=== PATIENT | male | born 1955 | race Caucasian/White ===

== ENCOUNTER → 2019-05-04 09:43 | Outpatient (CLI) | payer BC, SELFPAY ==
--- NOTE | 2019-05-04 09:50 | XR_ITS ---
PROCEDURE: XR LUMBAR SPINE MIN 4V CLINICAL INDICATION: LT SIDE SCIATICA PAIN COMPARISON: No exams were available for comparison FINDINGS: Severe degenerative disc disease is present at L2-L3 with loss of disc space, osteophyte formation, and osteosclerosis. There is straightening of lordosis. No acute fracture or dislocation. Mild degenerative disc disease L4-L5. Mild facet hypertrophic changes L4-5 and L5-S1. There is a 3 mm calcific density to the left of the L3 transverse process slightly more lateral than what 1 would expect for ureteral stone possibly due to a kidney stone in the low-lying kidney. CT abdomen may further evaluate if clinically desired. Mild degenerative changes of the hips. IMPRESSION: 1. Spondylosis of the lumbar spine with severe degenerative disc disease L2-L3 2. Possible left renal stone Dictated by: Noam Cash MD 05/04/2019 10:45 Electronically signed by Noam Cash MD in [place] 05/04/2019 10:45
== END ==
PROVIDERS: PCP Internal Medicine Adolescent Medicine; Visit Provider Internal Medicine Adolescent Medicine
DX: M54.32 Sciatica, left side (principal)
CPT/HCPCS: 72110

== ENCOUNTER 2019-05-18 17:00 | Outpatient (RCR) | payer BC, SELFPAY ==
--- NOTE | 2019-05-10 18:07 | HMH.PTOPEV ---
PT Outpatient Evaluation Rehab PT Outpatient Evaluation Start: 05/10/19 16:55 Freq: Status: Active Protocol: Document 05/10/19 17:31 RUBY (Rec: 05/10/19 18:07 RUBY [id number]) Electronically Signed By Sampson Addison, PT 05/10/19 17:31 Outpatient Therapy Subjective History Subjective History Patient is a 63 year old male presenting to outpatient PT with reports of sub-acute LLE radicular symptoms starting approximately 3 months ago of insidious onset. Pt reports that he was diagnosed with singles without presence of rash. Most recent diagnostics indicate L 2/3 severe DDD. Pt reports symptoms present from L lateral hip to dorsum of L foot. Comorbidities include HTN, high cholesterol and diabetes. Chief Complaint Pain,Paresthesia Symptom Type Ache,Sharp,Burning Symptoms Relieved By Rest/Positioning,Prescription Meds Symptoms Aggravated By Bending/Stooping,Walking Prior Functional Limitations None Current Functional Limitations Reaching,Housework,Sleeping, Standing,Squatting,Recreation Activity,Walking,Bending/ Stooping Symptom Description Constant but Variable Level of pain today (0-10) 4 Pain scale - at its best (0-10) 2 Pain scale - at its worst (0-10) 8 Lumbopelvic Eval Posture Thoracic Spine Posture Standing Position Increased Kyphosis Lumbar Spine Posture Standing Position Decreased Lordosis Assistive device Assistive Devices None / NA Gait Observation General Gait Pattern Observation Antalgic Gait,Decrease Weight Bear (L) Palapation tenderness left buttock tenderness Yes: 4/4 Accessory Movement L5 left S1 left Range of Motion Lumbar Spine Active Flexion Range of 47 Motion (degrees) Lumbar Spine Active Extension Range of 25 Motion (degrees) Left Lumbar Spine Lateral Flexion Active 28 Range of Motion (degrees) Right Lumbar Spine Lateral Flexion 25 Active Range of Motion (degrees) Lumbar Spine ROM Limitations Soft Tissue Tightness,Bony Restriction Manual Muscle Test Left Knee Extension Strength Grade 4- Good- Hip Flexion Strength Grade 4- Good- DTR Rt Patellar
== END 2019-05-18 17:05 | disposition home or self-care (01) ==
LOC: PT 17:00
PROVIDERS: PCP Internal Medicine Adolescent Medicine; Visit Provider Internal Medicine Adolescent Medicine
DX: M54.31 Sciatica, right side (principal)
CPT/HCPCS: 97010; 97012; 97014; 97110; 97163; G0283

== ENCOUNTER → 2020-03-16 09:39 | Outpatient (CLI) | payer BC, SELFPAY ==
[2020-03-17 08:50] LABS: Covid-19 Nasal PCR Sendout UK Not Detected
== END ==
PROVIDERS: PCP Nurse Practitioner Family; Visit Provider Nurse Practitioner Family
DX: R06.02 Shortness of breath (principal)
CPT/HCPCS: U0003

== ENCOUNTER → 2020-04-26 13:15 | Outpatient (CLI) | payer BC, SELFPAY ==
--- NOTE | 2020-04-26 13:21 | CT_ITS ---
PROCEDURE: CT LUNG SCREENING CLINICAL INDICATION: HX OF NICOTINE Forty-five pack-year smoking history, asymptomatic for lung cancer COMPARISON: No exams were available for comparison TECHNIQUE: The exam was performed on a GE Light Speed [address] scanner using 2.90 mGy CTDI. A low dose helical CT CHEST was performed on a multi-detector scanner. All CT scans at the facility use one or more dose reduction, viz: automated exposure control, ma/kV adjustment per patient size (including targeted exams where dose is matched to indication, i.e. head), or iterative reconstruction technique. The LDCT was performed in a facility that meets the criteria for the screening program. Data regarding this exam was submitted to ACR which is an approved registry. The order for this exam indicates that it came as a result of a lung cancer screening counseling shard decision-making visit that included all the elements required of such a visit including smoking cessation. The radiologist interpreting this exam meets the CMS criteria for the LDCT lung cancer screening program. The exam is reported using the Lung-RADS classification scale and reported to the ACR registry. NOTE: This study was performed for the specific purposes of lung cancer screening and is not an alternative to diagnostic chest CT. RADIATION DOSE: CTDI vol(CT dose Index-volume) = 2.90mG DLP (Dose Length Product) = 114.64 mGcm FINDINGS: COPD changes. Mild bronchial thickening. No central obstructing lesions. Minimal scarring in the left lung base. Calcified granuloma is present in the left lower lobe. No suspicious nodules infiltrates or effusions. Left hemidiaphragm is elevated. OTHER FINDINGS: Coronary artery calcifications. A subcutaneous cystic lesion is present in the upper thoracic area posteriorly and centrally measuring 3.7 by 3.6 cm consistent with a sebaceous cyst. There is an oval isodense region in the anterior mediastinum measuring 5.5 x 2.9 x 2 cm. IMPRESSION: Lung-RADS Category 1 Negative There is a cystic anterior mediastinal mass which measures 5.5 x 2.9 cm. 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 Follow-up is suggested to confirm stability. Follow-up: Recommend [address] chest without and with contrast for further evaluation of the anterior mediastinal mass. Dictated by: Noam Cash MD 05/01/2020 10:20 Noam Cash MD in [place] 05/01/2020 10:20
== END ==
PROVIDERS: PCP Nurse Practitioner Family; Visit Provider Internal Medicine Adolescent Medicine
DX: Z87.891 Personal history of nicotine dependence (principal); Z12.2 Encounter for screening for malignant neoplasm of respiratory organs

== ENCOUNTER → 2020-05-17 15:11 | Outpatient (CLI) | payer BC, SELFPAY | PROVIDERS: PCP Internal Medicine Adolescent Medicine; Visit Provider Internal Medicine Adolescent Medicine | DX: G47.33 Obstructive sleep apnea (adult) (pediatric) (principal); R40.0 Somnolence; R06.83 Snoring; I10 Essential (primary) hypertension | CPT/HCPCS: G0399 ==

== ENCOUNTER → 2020-07-15 13:38 | Outpatient (CLI) | payer BC, SELFPAY | PROVIDERS: PCP Internal Medicine Adolescent Medicine; Visit Provider Nurse Practitioner Family | DX: Z11.52 Encounter for screening for COVID-19 (principal); J02.9 Acute pharyngitis, unspecified; R05 Cough | CPT/HCPCS: U0003 ==

== ENCOUNTER → 2020-10-08 17:10 | Outpatient (CLI) | payer BC, SELFPAY | PROVIDERS: Visit Provider Otolaryngology | DX: Z01.818 Encounter for other preprocedural examination (principal) ==

== ENCOUNTER → 2020-10-09 16:46 | Outpatient (CLI) | payer BC, SELFPAY ==
[2020-10-09 19:13] LABS: Coronavirus 19 IgG Antibody Negative (Negative); Coronavirus 19 IgM Antibody Negative (Negative)
== END ==
PROVIDERS: Visit Provider Otolaryngology
DX: Z01.818 Encounter for other preprocedural examination (principal); Z20.822 Contact with and (suspected) exposure to COVID-19; L98.9 Disorder of the skin and subcutaneous tissue, unspecified; L57.0 Actinic keratosis
CPT/HCPCS: 36415; 86328

== ENCOUNTER 2020-10-10 06:41 | Day surgery (SDC) | payer BC, SELFPAY ==
[2020-10-10 07:22] VITALS: BP 177/81; PULSE 53; RESP 18; TEMP 36.3; O2SAT 96; BMI 30.1
[2020-10-10 07:35] LABS: POC Glucose,Bedside 123 (70-110)
--- NOTE | 2020-10-10 07:53 | HMH.ANESCL ---
[facility] Anesthesia Checklist - Structural Data Admitted From: Home Planned Operative Procedure/s: excision neoplasm r hand, r face Consent for Planned Operative Procedure(s) Verified: Yes - Additional verifications Anesthesia Reactions: No Hx Blood Transfusions: No Blood Transfusion Reaction: No - Airway Assessment C-Spine Mobility Assessed: Yes TMJ Mobility Assessed: Yes Dentition: Edentulous - Neurological Assessment Level of Consciousness: Awake, Alert, Appropriate - Anesthesia Plan Anesthesia Risk discussed: Yes Anesthesia Plan: Verified ASA Class: II Anesthesia Type: MAC [facility] History I have reviewed the patient's past medical history: Yes Medical History: Reports:: Diabetes Mellitus Type 2 Denies:: Cancer, Diabetes Mellitus Type 1, Internal Pacemaker, MRSA, Seizures *Have you ever received a pneumonia vaccine?: No *Have you received a flu vaccine this season?: No Other Medical History: Denies: Blood Transfusion Reaction Anesthesia experience/problems:: none Other Surgeries: No: Pacemaker Amputation: No Fractures: No - *Social History Last grade of school completed: 11th or 12th Smoking Status: Current every day smoker Tobacco Type: cigarettes # Packs/Day (cigarettes): 1 Alcohol Intake: never Substance Use Type: denies use *Occupational Status:: employed Housing: house Household Members: spouse, family *Travel in the last 8 weeks: None Family Hx:: No significant family history
--- NOTE | 2020-10-10 09:17 | P.OP_ITS ---
Date of procedure: 10/10/20 Pre-op Diagnosis:: 1. lesion right cheek 3.8cm 2. lesion right hand 2.8cm Post-op Diagnosis:: Same Procedure performed:: 1. Excision of right cheek lesion 3.8 cm with tissue rearrangement geometric plastic repair 2. Excision of lesion right hand 2.8 cm with tissue rearrangement geometric plastic repair Surgeon:: Devon Mullins MD [employer] CLAIM INVESTIGATOR:: Other Anesthesia: MAC Estimated blood loss (mL): 10 Operative findings:: Same Operative note:: With the patient under MAC sedation the right cheek was prepped and draped. The perilesional area was infiltrated with 3.8 cc of 2% lidocaine with epi. The lesion was marked out a marker on the right cheek measured 3.8 cm, the chase out was incised and the lesion was excised and submitted. Bleeding was stopped with bipolar cautery, blood loss for all the procedure was less than 10 cc. Anterior and posterior incisions were made and a tissue rearrangement geometric plastic repair was done with interrupted 2-0 nylon sutures after Dermabond was placed in the defect. A dressing was applied. The patient was then repositioned and the lesion on the right hand measured 3.8 cm, the right hand was prepped and draped and the perilesional area was infiltrated with a total of 3.5 cc of 2% lidocaine with epinephrine. The lesion was marked out and the chase out was incised and the lesion was excised and submitted. Medial and lateral incisions were made and a tissue rearrangement Z-plasty repair was done with interrupted 3-0 nylon sutures. A Dermabond dressing was applied. The patient was sent to recovery in good general condition. Condition: stable Disposition: PACU Complications:: none
--- NOTE | 2020-10-10 09:22 | P.PN_ITS ---
[facility] Anesthesia Record Part I Intake, IV Amount: 300 Estimated blood loss (mL): 5 Urine output (mL): 0 Blood Pressure: 100/49 SaO2: 90 Pulse Rate: 49 Respiratory Rate: 14 Temperature: 97.1 F Patient is:: Awake Stable to PACU at:: 09:20
[2020-10-10 09:23] VITALS: BP 100/49; PULSE 47; RESP 18; TEMP 36.2; O2SAT 92
[2020-10-10 09:24] VITALS: BP 100/49; PULSE 49; RESP 14; TEMP 36.2; O2SAT 90
[2020-10-10 09:33] VITALS: BP 109/54; PULSE 48; RESP 18; O2SAT 90
[2020-10-10 09:43] VITALS: BP 116/68; PULSE 47; RESP 18; O2SAT 92
[2020-10-10 09:53] VITALS: BP 123/68; PULSE 50; RESP 18; O2SAT 91
== END 2020-10-10 10:00 | disposition home or self-care (01) ==
PROVIDERS: PCP Internal Medicine Adolescent Medicine; Visit Provider Otolaryngology
PROC: (CPT 14040; principal; 2020-10-10 08:15)
DX: L57.0 Actinic keratosis (principal); B07.9 Viral wart, unspecified; E11.9 Type 2 diabetes mellitus without complications; Z72.0 Tobacco use; Z79.82 Long term (current) use of aspirin; Z88.8 Allergy status to other drugs, medicaments and biological substances
CPT/HCPCS: 14040 ×2; 82962; 96374

== ENCOUNTER → 2021-01-23 14:01 | Outpatient (CLI) | payer BC, SELFPAY ==
[2021-01-23 07:26] LABS: Basophils # 0.1 K/mm3 (0-0.2); Basophils % 1.2 % (0.1-2.0); Eosinophils # 0.3 K/mm3 (0.0-0.4); Hematocrit 55.4 % (42.0-52.0); Hemoglobin 17.9 g/dL (14.1-18.0); Lymphocytes # 2.2 K/mm3 (0.7-4.5); Lymphocytes % 25.1 % (10-50); Mean Corpuscular HGB Conc 32.3 g/dL (31.8-35.4); Mean Corpuscular Hemoglobin 27.9 pg (27.0-31.2); Mean Corpuscular Volume 86.6 fl (80-94); Mean Platelet Volume 7.6 fl (7.4-10.4); Monocytes # 0.7 K/mm3 (0.1-1.0); Monocytes % 7.5 % (1.7-9.3); Neutrophils # 5.4 K/mm3 (1.8-7.8); Neutrophils % 63.1 % (37.0-80.0); Platelet Count 212 K/mm3 (142-424); Red Cell Distribution Width 15.5 % (11.5-17.5); White Blood Count 8.6 K/mm3 (4.8-10.8)
[2021-01-23 07:33] LABS: Alanine Aminotransferase 19 U/L (12-78); Albumin Level 4.2 g/dl (3.5-5.0); Albumin/Globulin Ratio 1.4 (1.1-1.8); Alkaline Phosphatase 52 U/L (38-126); Anion Gap 11.2 mEq/L (5-15); Aspartate Amino Transferase 22 U/L (17-59); Bilirubin,Total 0.5 mg/dl (0.2-1.3); Blood Urea Nitrogen 15 mg/dl (9-20); Calcium 9.1 mg/dl (8.4-10.2); Carbon Dioxide 28 mmol/L (22.0-30.0); Chloride 109 mmol/L (98-107); Chol/HDL Ratio 5.3 (1-3.5); Cholesterol 143 mg/dl (140-200); Estimated Glomerular Filt Rate 55 ml/min (>60); GFR (African American) 67 ML/MIN (>60); Globulin 2.9 g/dL (1.3-3.2); Glucose 114 mg/dl (74-100); HDL Cholesterol 27 mg/dl (40-60); Potassium 4.2 mmoL/L (3.5-5.1); Sodium 144 mmol/L (136-145); Total Protein,Serum 7.1 g/dl (6.3-8.2); Triglycerides 188 mg/dl (30-150); VLDL Cholesterol 38 mg/dL (0-40)
[2021-01-23 07:38] LABS: Hemoglobin A1C 6.8 % (4.0-6.0)
[2021-01-23 08:06] LABS: Thyroid Stimulating Hormone 2.06 uIU/mL (0.465-4.68)
--- NOTE | 2021-01-23 14:05 | CT_ITS ---
PROCEDURE: CT CHEST WO/W CON CLINCAL INDICATION: MEDIASTINAL MASS COMPARISON: CT CT LUNG SCREENING from 04/26/2020 TECHNIQUE: CT chest with axial, coronal, and sagittal multiplanar reformations, performed with and without contrast. Dose modulation, automated exposure control, and/or iterative reconstruction were used for dose reduction. IV Contrast: 75ml Isovue 370 FINDINGS: LUNGS: The lungs are clear without focal consolidation, pleural effuison, or pneumothorax. Calcified granuloma in the left lower lobe. Bibasal atelectasis is noted. No suspicious lung nodules are noted. Airway: The central airways are patent. HEART / [facility] Heart:The heart is normal size without pericardial effusion. Vessels: The thoracic aorta is unremarkable. MEDIASTINUM Mediastinum: There is no hilar or mediastinal lymphadenopathy. There is a focal fluid density noted in the anterior mediastinum measuring 2.9 times 1.8 centimeters, extends into the pericardial space demonstrates no interval change compared to the prior study. No other suspicious focal lesions. No abnormal enhancement is noted. UPPER ABDOMEN: Abdomen:Bulky bilateral adrenal glands are noted, unchanged compared to prior study, may represent hyperplasia. Otherwise the visualized upper abdominal solid organs are unremarkable. BONES Bones: Minor degenerative changes of the visualized thoracic spine. Thyroid: The visualized thyroid gland is unremarkable Other IMPRESSION: No acute intrathoracic abnormality. Fluid density nonenhancing lesion noted in the anterior mediastinum measuring 2.9 x 1.8 centimeters. This may represent a pericardial cyst. Thymic cyst should be considered. No interval change compared to prior study. Dictated by: Lashanda Cortez 01/23/2021 16:10 Lashanda Cortez in [place] 01/23/2021 16:10
== END ==
PROVIDERS: PCP Internal Medicine Adolescent Medicine; Visit Provider Internal Medicine Adolescent Medicine
DX: J98.59 Other diseases of mediastinum, not elsewhere classified (principal); E11.9 Type 2 diabetes mellitus without complications; E78.5 Hyperlipidemia, unspecified; G62.9 Polyneuropathy, unspecified; Z79.84 Long term (current) use of oral hypoglycemic drugs
CPT/HCPCS: 36415; 71270; 80053; 80061; 83036; 84443; 85025; Q9967

== ENCOUNTER → 2021-07-15 16:17 | Outpatient (CLI) | payer BC, SELFPAY ==
[2021-07-15 17:23] LABS: Hemoglobin A1C 6.6 % (4.0-6.0)
== END ==
PROVIDERS: PCP Internal Medicine Adolescent Medicine; Visit Provider Internal Medicine Adolescent Medicine
DX: E11.9 Type 2 diabetes mellitus without complications (principal); Z79.84 Long term (current) use of oral hypoglycemic drugs
CPT/HCPCS: 36415; 83036

== ENCOUNTER → 2021-07-18 15:33 | Outpatient (CLI) | payer BC, SELFPAY | PROVIDERS: Visit Provider Nurse Practitioner | DX: U07.1 COVID-19 (principal) | CPT/HCPCS: C9803; U0003; U0005 ==

== ENCOUNTER 2021-08-19 14:01 | Emergency (ER) | payer MEDICARE, SELFPAY ==
[2021-08-19 14:05] VITALS: BP 171/77; PULSE 70; RESP 16; TEMP 36.7; O2SAT 99; BMI 28.0
[2021-08-19 14:12] VITALS: PULSE 70; RESP 16; O2SAT 99; BMI 28.1
--- NOTE | 2021-08-19 14:21 | XR_ITS ---
FINAL REPORT CLINICAL HISTORY: FALL on ice FINDINGS: RIGHT ELBOW 3 views were obtained. There is a lucency in the coronoid process which is consistent with a fracture but of uncertain age. There is a chronic calcification adjacent to the lateral humeral condyle. There is no dislocation. The joint spaces are intact. There is no definite joint effusion or hemarthrosis. IMPRESSION: Lucency in the coronoid process consistent with a fracture but of uncertain age. No definite joint effusion or hemarthrosis. Reviewed, Interpreted and Dictated by Osman Flower III, MD Transcribed by Mami Cook Authenticated by Osman Flower III, MD on 08/19/2021 03:11:09 PM [facility]
--- NOTE | 2021-08-19 14:39 | HMH.EDUTC ---
[facility] Disposition Clinical Impression: Elbow fracture Qualifiers: Encounter type: initial encounter Fracture type: closed Laterality: right Qualified Code(s): S42.401A - Unspecified fracture of lower end of right humerus, initial encounter for closed fracture Disposition: Home, Self-Care Condition on Discharge: Good Instructions: How To Perform RICE (Rest, Ice, Compress, Elevate) Additional Instructions: *RICE, Rest the extremity, Ice 15-20 minutes 3-4 times daily, Compress- wear the todd wrap as discussed as much as possible to help reduce swelling and pain, Elevate the extremity when at rest *Todd wrap/Orthoglass is for support and help control swelling,. Be sure that is not to tight but not to loose either *Elevate when resting *Ibuprofen every 6-8 hours as needed for pain an inflammation as directed on package if you can take it If need something more or you can not take Motrin you can take Tylenol in between doses of Ibuprofen to help Immediately follow up with your family doctor for new or worsening of symptoms, or no noticeable improvement over the next 3-[address] Arita office in the morning for appointment Return if needed Straight to ER if any life threatening symptoms Referrals: Raud Garces MD [Primary Care Provider] - As needed Trenton Cortez MD [Staff Physician] - Time of Disposition: 15:48 Medical Decision Making - Jesús Inquiry Pt receiving controlled substance: No Jesús was queried for this patient: No Vital Signs: 08/19/21 14:05 08/19/21 14:12 08/19/21 15:50 Temperature 98.0 F 98.0 F Temperature Source Temporal Artery Scan Pulse Rate 70 Pulse Rate [Right] 70 70 Respiratory Rate 16 16 16 Blood Pressure 171/77 H Blood Pressure [Left Arm] 171/77 H Blood Pressure Mean [Left Arm] 108 Blood Pressure Source [Left Arm] Automatic Cuff Blood Pressure Position [Left Arm] Sitting 02 Sat by Pulse Oximetry 99 99 Oxygen Delivery Method Room Air Room Air Orders (Tests/Meds): ED MEDICATIONS Discontinued Medications Generic Name Dose Route Start Last Admin Trade Name Freq PRN Reason Stop Dose Admin Ketorolac Tromethamine 30 mg 08/19/21 15:37 08/19/21 15:40 Ketorolac 60mg/2ml Vial IM 08/19/21 15:38 30 mg ONCE ONE Administration - Radiology Data #1 Image(s): Elbow Image Reviewed: Yes I have reviewed radiologist's interpretation IMPRESSION: Lucency in the coronoid process consistent with a fracture but of uncertain age. No definite joint effusion or hemarthrosis. - Physician Consults Physician Consulted: Dr Cortez Time: 15:12 Reason -: Orthopedic Eval/Care Comment/Response: Called Dr Cortez office he is rn transition for Orthopedics Awaiting call back, Dr Cortez called back advised to place patient in long arm splint with elbow flexed at 90 degrees and have him call office in the [facility] for appointment Medical Decision Narrative: Awaiting Orthopedics to call back patient no distress [facility] HPI - General Stated complaint: AO fall 08/19 rt arm pain Time Seen by Provider: 08/19/21 14:39 Mode of Arrival: Ambulatory Source of Information: Patient Limitations: No Limitations Description of Symptoms (Recalled from Triage Doc. by RN): Pt advises he fell on some ice this am and is c/o pain in his right elbow. There is some swelling noted - History of Present Illness Provider Complaint: Patient states that he slipped and fell on ice around 11am and landed on his right elbow States that ever since he has been having pain in his elbow with swelling and large knot on the side of it State that when he moves it it shoots pain down into his arm Denies any other injury - Related Data Home Medications Medication Instructions Recorded Confirmed aspirin 81 mg tablet,delayed 81 mg PO DAILY 09/05/20 10/31/20 release Amlodipine/Atorvastatin 1 each PO DAILY 10/10/20 10/31/20 [Amlodipine-Atorvast 10-80 mg] Empagliflozin [Jardiance] 25 mg PO DAILY
[2021-08-19 15:50] VITALS: BP 171/77; PULSE 70; RESP 16; TEMP 36.7; O2SAT 99
== END 2021-08-19 16:06 | disposition home or self-care (01) ==
PROVIDERS: Emergency Provider Nurse Practitioner; PCP Internal Medicine Adolescent Medicine
DX: S42.401A Unspecified fracture of lower end of right humerus, initial encounter for closed fracture (principal); W00.0XXA Fall on same level due to ice and snow, initial encounter; Y92.9 Unspecified place or not applicable; E11.9 Type 2 diabetes mellitus without complications; F17.210 Nicotine dependence, cigarettes, uncomplicated
CPT/HCPCS: 29105; G0463; 73080; 96372; 99203

== ENCOUNTER → 2021-09-02 07:32 | Outpatient (CLI) | payer MEDICARE, SELFPAY ==
--- NOTE | 2021-09-02 07:36 | CT_ITS ---
FINAL REPORT CLINICAL HISTORY: rt elbow pain, fall poss old fx FINDINGS: CT RIGHT ELBOW WITHOUT CONTRAST TECHNIQUE: Axial, reformatted, and 3D images were obtained and reviewed of the right elbow. This study was performed with techniques to keep radiation doses as low as reasonably achievable, (ALARA). Individualized dose reduction techniques using automated exposure control or adjustment of mA and/or kV according to the patient's size were employed. FINDINGS: There is a nondisplaced fracture of the coronoid process favored to be acute. There is a calcification lateral to the humeral epicondyle consistent with an avulsion fracture of uncertain age. There is a 2nd small calcification anterior to the is favored to be chronic. There is a small enthesophyte at the lateral humeral epicondyle. A joint effusion or hemarthrosis is present. There is posterior soft tissue edema or hemorrhage. IMPRESSION: No acute process Reviewed, Interpreted and Dictated by Osman Flower III, MD Transcribed by Fabiola Crystal Authenticated by Osman Flower III, MD on 09/02/2021 09:19:12 AM [facility]
== END ==
PROVIDERS: PCP Internal Medicine Adolescent Medicine; Visit Provider Orthopaedic Surgery
DX: M25.521 Pain in right elbow (principal); S52.044A Nondisplaced fracture of coronoid process of right ulna, initial encounter for closed fracture
CPT/HCPCS: 73200

== ENCOUNTER → 2022-02-16 14:43 | Outpatient (CLI) | payer MEDICARE, SELFPAY ==
--- NOTE | 2022-02-16 14:46 | CT_ITS ---
FINAL REPORT CLINICAL HISTORY: TOBACCO USE DISORDER COMPARISON: 04/26/2020, 01/23/2021 FINDINGS: CTDI vol (mGy): 2.[address] images of the chest were obtained using the low-dose protocol for screening. Again seen is a cystic mass in the anterior mediastinum, previously measuring 26 mm, now measuring 21 mm. This may represent a thymic cyst or other cyst. There are mild coronary artery calcifications. There is no evidence of mediastinal or hilar adenopathy. No axillary mass or adenopathy is identified. On the lung window images, no pulmonary mass or suspicious nodule is identified. Mild emphysematous changes are seen. There is mild bibasilar atelectasis or scarring. There is diffuse, bronchial wall thickening which may represent bronchitis. There is a calcified granuloma in the left lower lobe. IMPRESSION: Stable cystic mass in the anterior mediastinum which may represent a thymic cyst or other cyst. Diffuse bronchial wall thickening which may represent bronchitis with mild bibasilar atelectasis or scarring. No pulmonary mass or nodule identified. Lung RADS category 1 . Recommend 12 month followup low-dose CT for further evaluation. Reviewed, Interpreted and Dictated by Osman Flower III, MD Transcribed by Rachell Mares Authenticated and [facility]
== END ==
PROVIDERS: PCP Internal Medicine Adolescent Medicine; Visit Provider Internal Medicine Adolescent Medicine
DX: Z87.891 Personal history of nicotine dependence (principal); Z12.2 Encounter for screening for malignant neoplasm of respiratory organs
CPT/HCPCS: 71271

== ENCOUNTER → 2022-07-16 08:18 | Outpatient (CLI) | payer MEDICARE, SELFPAY ==
[2022-07-16 09:37] LABS: Basophils # 0.2 K/mm3 (0-0.2); Basophils % 1.6 % (0.1-2.0); Eosinophils # 0.2 K/mm3 (0.0-0.4); Eosinophils % 2.3 % (0.1-12.0); Hematocrit 57.6 % (42.0-52.0); Lymphocytes # 2.6 K/mm3 (0.7-4.5); Lymphocytes % 26.3 % (10-50); Mean Corpuscular HGB Conc 31.7 g/dL (31.8-35.4); Mean Corpuscular Hemoglobin 28.7 pg (27.0-31.2); Mean Corpuscular Volume 90.7 fl (80-94); Mean Platelet Volume 8.6 fl (7.4-10.4); Monocytes # 0.7 K/mm3 (0.1-1.0); Monocytes % 6.6 % (1.7-9.3); Neutrophils # 6.3 K/mm3 (1.8-7.8); Neutrophils % 63.2 % (37.0-80.0); Platelet Count 250 K/mm3 (142-424); Red Blood Count 6.36 M/mm3 (4.60-6.20); Red Cell Distribution Width 15.4 % (11.5-17.5)
[2022-07-16 09:46] LABS: Hemoglobin 18.2 g/dL (14.1-18.0)
[2022-07-16 10:00] LABS: Chloride 109 mmol/L (98-107); Sodium 143 mmol/L (136-145)
[2022-07-16 10:01] LABS: Potassium 4.2 mmoL/L (3.5-5.1)
[2022-07-16 10:03] LABS: Alanine Aminotransferase 20 U/L (12-78); Albumin Level 4.1 g/dl (3.5-5.0); Albumin/Globulin Ratio 1.5 (1.1-1.8); Alkaline Phosphatase 64 U/L (38-126); Anion Gap 12.2 mEq/L (5-15); Aspartate Amino Transferase 26 U/L (17-59); Bilirubin,Total 0.5 mg/dl (0.2-1.3); Blood Urea Nitrogen 14 mg/dl (9-20); Calcium 9.1 mg/dl (8.4-10.2); Carbon Dioxide 26 mmol/L (22.0-30.0); Cholesterol 162 mg/dl (140-200); Estimated Glomerular Filt Rate 75 ml/min (>60); GFR (African American) 90 ML/MIN (>60); Globulin 2.8 g/dL (1.3-3.2); Glucose 126 mg/dl (74-100); Total Protein,Serum 6.9 g/dl (6.3-8.2); Triglycerides 207 mg/dl (30-150); VLDL Cholesterol 41 mg/dL (0-40)
[2022-07-16 10:04] LABS: Chol/HDL Ratio 6.2 (1-3.5); HDL Cholesterol 26 mg/dl (40-60)
[2022-07-16 10:13] LABS: Hemoglobin A1C 7.3 % (4.0-6.0)
[2022-07-16 10:14] LABS: Direct LDL Cholesterol 92.56 mg/dL (100-129)
== END ==
PROVIDERS: PCP Internal Medicine Adolescent Medicine; Visit Provider Internal Medicine Adolescent Medicine
DX: E11.9 Type 2 diabetes mellitus without complications (principal); E78.5 Hyperlipidemia, unspecified; D12.6 Benign neoplasm of colon, unspecified; Z79.84 Long term (current) use of oral hypoglycemic drugs
CPT/HCPCS: 36415; 80053; 80061; 83036; 85025

== ENCOUNTER → 2022-07-20 09:02 | Outpatient (CLI) | payer MEDICARE, SELFPAY ==
--- NOTE | 2022-07-20 09:06 | US_ITS ---
FINAL REPORT CLINICAL HISTORY: PERSONAL HISTORY OF NICOTINE DEPENDENCE FINDINGS: Limited sonographic images were obtained of the abdomen to evaluate the abdominal aorta and iliac arteries. The abdominal aorta measures within normal limits. The iliac arteries are within normal limits. IMPRESSION: No evidence of abdominal aortic aneurysm. Reviewed, Interpreted and Dictated by Tracey Reyes MD Transcribed by Mami Cook Authenticated and [facility]
== END ==
PROVIDERS: PCP Internal Medicine Adolescent Medicine; Visit Provider Internal Medicine Adolescent Medicine
DX: Z87.891 Personal history of nicotine dependence (principal)
CPT/HCPCS: 76705

== ENCOUNTER 2022-10-20 06:22 | Day surgery (SDC) | payer MEDICARE, SELFPAY ==
[2022-10-20 06:41] VITALS: BP 147/75; PULSE 62; RESP 18; TEMP 36.2; O2SAT 94; BMI 32.8
[2022-10-20 07:00] LABS: POC Glucose,Bedside 111 (70-110)
--- NOTE | 2022-10-20 07:20 | P.PN_ITS ---
[facility] Disclaimer: The information contained in this section may have been updated after the patient was seen, as this information can be updated by other users. Medical History (Updated 10/20/22 @ 06:39 by Vicente Buck RN) Diabetes HLD (hyperlipidemia) HTN (hypertension) Surgical History (Updated 10/20/22 @ 06:40 by Vicente Buck RN) H/O removal of cyst S/P colonoscopic polypectomy Family History (Updated 10/20/22 @ 06:40 by Vicente Buck RN) Other No significant family history Social History (Updated 10/20/22 @ 06:40 by Vicente Buck RN) Smoking Status: Current every day smoker tobacco type: cigarettes packs per day: 1 second hand exposure: No alcohol intake: never substance use type: denies use current occupational status: employed and retired Travel in the last 8 weeks: None household members: spouse and family housing: house current occupation: [employer] current occupational exposures/hazards: No caffeine: Yes [facility] Anesthesia Checklist Patient Identification Patient Identification: Arm Band Structural Data Admitted From: Home Planned Operative Procedure/s: Colonoscopy Consent for Planned Operative Procedure(s) Verified: Yes Verified Documents: Surgical Consent and History and Physical NPO Status Verified Time NPO: 00:00 Additional verifications Anesthesia Reactions: No Hx Blood Transfusions: No Blood Transfusion Reaction: No Airway Assessment C-Spine Mobility Assessed: Yes TMJ Mobility Assessed: Yes Dentition: Good Dentition Neurological Assessment Level of Consciousness: Awake and Alert Anesthesia Plan Anesthesia Plan: Verified ASA Class: II Anesthesia Type: MAC
[2022-10-20 07:24] VITALS: O2SAT 96
--- NOTE | 2022-10-20 08:08 | P.PCN_ITS ---
Procedure: Date: 10/20/22 Patient Date of :: 1955 Procedure Performed:: Colonoscopy with polypectomy Indications:: History of colon polyps Performing Provider:: Marco Antonio Jimenez MD Referring Provider:: . Sedation:: Monitored anesthesia care Procedure:: After informed consent was obtained the patient was taken to the endoscopy suite. Sedation ensued after the patient was transferred to the left lateral d ecubitus position. Pulse, blood pressure, and oxygen saturation were monitored throughout the procedure. Digital rectal exam revealed no significant abnormality. The colonoscope was placed in position. The entire colon was evaluated. The colonoscope was carefully removed and the patient was transferred to recovery in stable condition. Please see findings and specimens below for detail. Findings:: Bowel preparation moderate to poor Profound spasticity and lack of relaxation Hemorrhoidal tags/cushions Pandiverticulosis Lobulated complex polyps (see specimens) Specimens:: 3 adjacent lobulated sessile complex polyps at 60 cm (cold snare) Recommendations:: Timing of repeat colonoscopy is pending pathology but likely be around 1 year with extended/alternate bowel preparation. Complications:: No immediate with the exception of moderate to poor bowel preparation. Also note that visualization was limited by spasticity/lack of relaxation. Estimated blood obtained (mL): 1
[2022-10-20 08:10] VITALS: BP 115/62; PULSE 52; RESP 14; TEMP 36.4; O2SAT 93
[2022-10-20 08:20] VITALS: BP 121/62; PULSE 58; RESP 16; O2SAT 92
[2022-10-20 08:30] VITALS: BP 115/64; PULSE 55; RESP 17; O2SAT 92
[2022-10-20 08:36] VITALS: BP 129/75; PULSE 58; RESP 18; O2SAT 92
== END 2022-10-20 08:40 | disposition home or self-care (01) ==
PROVIDERS: PCP Nurse Practitioner Family; Visit Provider Surgery
PROC: 0DJD8ZZ Inspection of Lower Intestinal Tract, Via Natural or Artificial Opening Endoscopic (ICD-10-PCS; principal; 2022-10-20 07:30)
DX: Z12.11 Encounter for screening for malignant neoplasm of colon (principal); D12.4 Benign neoplasm of descending colon; Z86.010 Personal history of colon polyps; F17.210 Nicotine dependence, cigarettes, uncomplicated; E11.9 Type 2 diabetes mellitus without complications
CPT/HCPCS: 45385; 82962; 88305; J2704

== ENCOUNTER 2022-11-24 06:27 | Day surgery (SDC) | payer MEDICARE, SELFPAY ==
[2022-11-20 10:43] VITALS: BMI 31.6
[2022-11-24] VITALS (8 sets, daily range): BP systolic 134–157; BP diastolic 73–80; PULSE 50–55; RESP 14–18; TEMP 36.2–36.7; O2SAT 92–95
[2022-11-24 13:45] LABS: POC Glucose,Bedside 111 (70-110)
== END 2022-11-24 08:11 | disposition home or self-care (01) ==
PROVIDERS: PCP Nurse Practitioner Family; Visit Provider Ophthalmology
DX: E11.36 Type 2 diabetes mellitus with diabetic cataract (principal); H25.9 Unspecified age-related cataract; F17.210 Nicotine dependence, cigarettes, uncomplicated; Z79.899 Other long term (current) drug therapy
CPT/HCPCS: 66984; 82962; V2632

== ENCOUNTER 2022-12-15 06:28 | Day surgery (SDC) | payer MEDICARE, SELFPAY ==
[2022-12-14 09:59] VITALS: BMI 33.3
[2022-12-15 06:50] VITALS: BP 137/55; PULSE 54; RESP 18; TEMP 36.2; O2SAT 95
[2022-12-15 07:08] LABS: POC Glucose,Bedside 134 (70-110)
[2022-12-15 07:51] VITALS: BP 153/78; PULSE 52; RESP 17; O2SAT 94
[2022-12-15 07:56] VITALS: BP 146/77; PULSE 52; RESP 17; O2SAT 91
[2022-12-15 08:01] VITALS: BP 141/72; PULSE 52; RESP 16; O2SAT 92
[2022-12-15 08:06] VITALS: BP 136/72; PULSE 52; RESP 17; O2SAT 93
[2022-12-15 08:17] VITALS: BP 151/73; PULSE 56; RESP 20; TEMP 36.8; O2SAT 94
== END 2022-12-15 08:24 | disposition home or self-care (01) ==
LOC: OR 06:30
PROVIDERS: PCP Nurse Practitioner Family; Visit Provider Ophthalmology
DX: E11.36 Type 2 diabetes mellitus with diabetic cataract (principal); H25.9 Unspecified age-related cataract; H53.149 Visual discomfort, unspecified; H02.834 Dermatochalasis of left upper eyelid; H02.831 Dermatochalasis of right upper eyelid
CPT/HCPCS: 66984; 82962; V2632

== ENCOUNTER 2023-08-30 13:35 | Outpatient (CLI) | payer MEDICARE, SELFPAY ==
--- NOTE | 2023-08-30 13:40 | CT_ITS ---
FINAL REPORT TECHNIQUE: Thin section axial images were obtained through the lungs using a low-dose technique per lung cancer screening protocol. Reconstruction images were obtained using the axial data. Exam was performed using dose reduction technique. CLINICAL HISTORY: HISTORY OF NICOTINE CURRENT SMOKER 1.5PPD X35 YEARS COMPARISON: 02/16/2022 FINDINGS: CTDLvol: 2.9 DLP: 98.21 Current smoker, 68 years old 52 pack year history Lungs: Mild changes of emphysema are again noted, stable. No suspicious nodules. Evidence of prior granulomatous disease is once again noted. Lymph nodes: No thoracic lymphadenopathy. Mediastinum: Heart size is normal. There is a anterior mediastinal lesion again noted, measuring 21 mm in size, stable since the prior exam. 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 Mild coronary artery and aortic calcifications are again identified, stable. Pleura/pericardium: No pleural or pericardial effusion. Other: No acute abnormality in the upper abdomen. There is a subcutaneous density present in the left upper back, measuring 4.7 cm in diameter, stable since the prior exam, and likely a sebaceous cyst. IMPRESSION: No suspicious pulmonary nodule or mass. Anterior mediastinal density, 21 mm in size, stable when compared to the prior CT of 2021. 4.7 cm subcutaneous density in the left upper back, likely a sebaceous cyst, also stable. Lung RADS: 1S (with the S designation for the anterior mediastinal lesion, subcutaneous sebaceous cyst, and coronary artery calcifications) Recommendation: 12-month follow-up LDCT Reviewed, Interpreted and Dictated by Tracey Reyes MD Transcribed by Pauline Carolina Authenticated and [facility]
== END 2023-08-30 23:59 ==
LOC: RAD 13:35
PROVIDERS: PCP Nurse Practitioner Family; Visit Provider Nurse Practitioner Family
DX: Z87.891 Personal history of nicotine dependence (principal); Z12.2 Encounter for screening for malignant neoplasm of respiratory organs
CPT/HCPCS: 71271

== ENCOUNTER 2023-09-07 07:18 | Outpatient (CLI) | payer MEDICARE, SELFPAY ==
[2023-09-07 07:54] LABS: Basophils % 1.5 % (0.1-2.0); Eosinophils % 3.3 % (0.1-12.0); Hematocrit 55.7 % (42.0-52.0); Hemoglobin 17.7 g/dL (14.1-18.0); Lymphocytes % 32.5 % (10-50); Mean Corpuscular HGB Conc 31.8 g/dL (31.8-35.4); Mean Corpuscular Hemoglobin 28.8 pg (27.0-31.2); Mean Corpuscular Volume 90.3 fl (80-94); Mean Platelet Volume 8.3 fl (7.4-10.4); Monocytes % 7.5 % (1.7-9.3); Neutrophils # 4.6 K/mm3 (1.8-7.8); Neutrophils % 55.2 % (37.0-80.0); Platelet Count 184 K/mm3 (142-424); Red Blood Count 6.17 M/mm3 (4.60-6.20); Red Cell Distribution Width 15.7 % (11.5-17.5); White Blood Count 8.3 K/mm3 (4.8-10.8)
[2023-09-07 07:55] LABS: Basophils # 0.1 K/mm3 (0-0.2); Eosinophils # 0.3 K/mm3 (0.0-0.4); Lymphocytes # 2.7 K/mm3 (0.7-4.5); Monocytes # 0.6 K/mm3 (0.1-1.0)
[2023-09-07 08:33] LABS: Anion Gap 8.9 mEq/L (5-15); Blood Urea Nitrogen 9 mg/dl (9-20); Carbon Dioxide 27 mmol/L (22.0-30.0); Chloride 111 mmol/L (98-107); Estimated Glomerular Filt Rate 74 ml/min (>60); GFR (African American) 90 ML/MIN (>60); Glucose 117 mg/dl (74-100); Potassium 3.9 mmoL/L (3.5-5.1); Sodium 143 mmol/L (136-145)
== END 2023-09-07 23:59 ==
LOC: LAB 07:20
PROVIDERS: PCP Nurse Practitioner Family; Visit Provider Surgery
DX: L72.3 Sebaceous cyst (principal); R60.0 Localized edema; Z01.812 Encounter for preprocedural laboratory examination
CPT/HCPCS: 36415; 80048; 85025

== ENCOUNTER 2023-09-09 06:00 | Day surgery (SDC) | payer MEDICARE, MEDICAID, SELFPAY ==
[2023-09-07 10:44] VITALS: BMI 29.7
[2023-09-09] VITALS (9 sets, daily range): BP systolic 105–175; BP diastolic 60–87; PULSE 50–61; RESP 12–18; TEMP 36.1–36.6; O2SAT 91–98
[2023-09-09] MEDS: LACTATED RINGERS 1000ML 1,000 ML 100 ML IV (06:11)
[2023-09-09 06:27] LABS: POC Glucose,Bedside 121 (70-110)
[2023-09-09] MEDS: CEFAZOLIN SODIUM 1 GM in 0.9 % SODIUM CHLORIDE 50 ML IV (07:39)
[2023-09-09] MEDS: LIDOCAINE 1% 20ML MDV 20 ML (07:39)
[2023-09-09] MEDS: BACITRACIN ZINC OINT 30GM TUBE 28 GM TP (07:55)
--- NOTE | 2023-09-09 08:02 | EXP.ANES.CKL ---
[facility] Disclaimer: The information contained in this section may have been updated after the patient was seen, as this information can be updated by other users. Medical History Cataract Diabetes HLD (hyperlipidemia) HTN (hypertension) Skin cancer Sleep apnea Surgical History H/O removal of cyst S/P colonoscopic polypectomy Family History Other No significant family history Social History Smoking Status: Current every day smoker tobacco type: cigarettes packs per day: 1 second hand exposure: No alcohol intake: never substance use type: denies use current occupational status: employed and retired Travel in the last 8 weeks: None household members: spouse and family housing: house current occupation: LIBRARY MEDIA TECHNICIAN current occupational exposures/hazards: No caffeine: Yes [facility] Anesthesia Checklist Patient Identification Patient Identification: Arm Band, Family and Verbal (Name & ) Structural Data Admitted From: Home Planned Operative Procedure/s: Excision sebaceous cyst on back Consent for Planned Operative Procedure(s) Verified: Yes Verified Documents: Surgical Consent and History and Physical NPO Status Verified Time NPO: 22:00 Chart Verification Results Verified: CBC, BMP and Chest Xray (Lung CT) Additional verifications Fingerstick Blood Glucose: 121 Patient : No Anesthesia Reactions: No Hx Blood Transfusions: No Blood Transfusion Reaction: No Cardiovascular Assessment Heart Sounds: S1 & S2 Pulse Rhythm: Irregular Peripheral Edema: No Airway Assessment Mallampati Score:: Class I C-Spine Mobility Assessed: Yes TMJ Mobility Assessed: Yes Dentition: Edentulous Neurological Assessment Level of Consciousness: Awake, Alert, Appropriate and Follows Commands Hx Seizures: No Numbness or tingling in extremities: No Anesthesia Plan Anesthesia Risk discussed: Yes Anesthesia Plan: Verified ASA Class: III Anesthesia Type: General
--- NOTE | 2023-09-09 08:29 | EXP.OP.NOTE ---
Date of procedure: 09/09/23 Pre-op Diagnosis:: Recurrent mid/left upper back sebaceous cyst (5 cm) Post-op Diagnosis:: Same Procedure performed:: Excision of recurrent left mid/upper back sebaceous cyst (5 cm) Surgeon:: Marco Antonio Jimenez MD Anesthesia: LMA Estimated blood loss (mL): 15 Operative findings:: Cyst excised in toto Operative note:: After informed consent was obtained the patient was taken to the operating room and placed in the supine position. General anesthesia with laryngeal mask airway was achieved. He was transferred to a modified right lateral decubitus position. His mid/upper back region was prepped and draped in a sterile fashion. After infiltration with local anesthetic an elliptical incision was made around the lesion. The deep subcutaneous tissue was excised with electrocautery. The lesion was excised in toto and passed off for pathologic evaluation. Electrocautery was utilized to achieve hemostasis. Lateral tissue flaps were then raised with electrocautery to allow for closure. The deep subcutaneous tissue was reapproximated with 2-0 Vicryl. Skin was closed with interrupted 4-0 nylon. Dressings were applied and the patient was transferred to recovery in stable condition after removal of his laryngeal mask airway. Condition: stable Disposition: PACU Specimens:: Left mid/upper back sebaceous cyst Complications:: No immediate
--- NOTE | 2023-09-09 08:41 | P.PNANES_ITS ---
[facility] Anesthesia Record Part I Anesthesia Record I Intake, IV Amount: 800 Hydration: Adequate Estimated blood loss (mL): 25 Urine output (mL): 0 Blood Products used (#): none Blood Pressure: 105/60 SaO2: 91 Pulse Rate: 50 Airway Patency: Patent Respiratory Rate: 14 Temperature: 97.0 F Patient is:: Drowsy, Oral/Nasal airway (10.0 oral airway) and Stable Stable to PACU at:: 08:42
--- NOTE | 2023-09-09 13:42 | SUR.PHASEII ---
1310- Patient arrived at preop sent from office. Patient's called office r/t pt dressing bleeding and saturated dressing bleeding down pts back. 1315-I msg Dr Jimenez regarding patients dressing and how to proceed. Dr Jimenez called and ordered me to remove old dressing due to saturation. Clean with alcohol and apply triple antibiotic ointment to wound. Try to apply a pressure dressing to site. 1320-Removed dressing from incision site and noted two (2) areas oozing blood. Otherwise incision, stitches and edges looks good.Assisted by Raz Using sterile technique, cleaned area with alcohol, and applied triple antibiotic ointment to stitched area. Applied sterile 4x4 dry gauze rolled over stiches and applied pressure with tegaderm placement. Repeated this 3 times to cover incisional area. Applied perforated tape over area for reinforcement of tegaderm. Dressing was CDI when patient dressed and left preop.
--- NOTE | 2023-09-13 16:17 | P.PNANES_ITS ---
[facility] Anesthesia Record Part II Anesthesia Record Part II Discharge Time: 09:07 Destination: Surgical Day Care (OP Surgery) PACU nurse assessment reviewed?: Yes Patient Condition:: Good Anesthesia Complications:: None Swallowing reflex intact?: Yes Airway Patency: Patent Cyanosis?: No Blood Pressure: 135/76 SaO2: 92 Respiratory Rate: 16 Pulse Rate: 52 Temperature: 97 F Mental Status: Alert & Oriented Pain level:: 0 Nausea and/or vomitting:: None Intake, IV Amount: 0 Hydration: Adequate
[2023-09-13 16:19] VITALS: BP 135/76; PULSE 52; RESP 16; TEMP 36.1; O2SAT 92
== END 2023-09-09 09:18 | disposition home or self-care (01) ==
PROVIDERS: PCP Nurse Practitioner Family; Visit Provider Surgery
PROC: (CPT 11406; principal; 2023-09-09 07:30)
DX: L72.0 Epidermal cyst (principal); E11.9 Type 2 diabetes mellitus without complications
CPT/HCPCS: 11406; 82962; 88304; 96374; J2405

== ENCOUNTER 2023-09-10 01:13 | Emergency (ER) | payer MEDICARE, MEDICAID, SELFPAY ==
[2023-09-10 01:16] VITALS: BP 175/83; PULSE 65; RESP 16; TEMP 36.4; O2SAT 99; BMI 29.7
--- NOTE | 2023-09-10 01:26 | ED_ITS ---
Discharge Plan Disposition Patient Disposition: Home, Self-Care Prescriptions Prescriptions: No Action aspirin 81 mg tablet,delayed release (DR/EC) 81 mg PO DAILY atorvastatin 80 mg tablet 80 mg PO HS hydrocodone-acetaminophen 5-325 mg tablet 1 tab PO Q6H PRN (Reason: post-op pain) Qty: 13 0RF amlodipine-atorvastatin 1 EACH tablet 1 each PO DAILY fenofibrate nanocrystallized 160 MG tablet 160 mg PO DAILY empagliflozin 25 MG tablet 25 mg PO DAILY lisinopril 5 mg tablet 10 mg PO DAILY Referrals Follow up/Referrals: Aiyana Meyers APRN [Primary Care Provider] - See instructions Activity Restrictions/Add. Instructions Additional Instructions/Restrictions: Please follow-up with Dr. Jimenez. Please return to the emergency department if you develop any new or worsening symptoms or become concerned for your health. Clinical Impressions Clinical Impression: Post-op bleeding Qualifiers: Surgical complication system/body Area: skin Instructions Patient Instructions: DI for Laceration Repair Discharge ED Provider: [facility] HPI General Chief complaint: Wound/Laceration Stated complaint: cyst removal on back 09/08,bleeding thru dressing Time Seen by Provider: 09/10/23 01:21 Mode of Arrival: Ambulatory Source of Information: Patient Limitations: No Limitations Description of Symptoms (Recalled from ER Triage Doc. by RN): pt states had a sebacous cyst removed on 09/08 and is bleeding thur dressing History of Present Illness HPI narrative: 68-year-old male presents for concern for postoperative bleeding. He had a very large sebaceous cyst removed from his back within the last 24 hours. Approximately 5 hours after he left, he returned due to bleeding through the dressing. The wound was redressed by his surgical team and patient was discharged. He has continued to have a small volume of bleeding underneath the bandage. He denies any significant pain. reports that the shape of the back looks a little different, may be slightly bulging. They do not report large-volume bleeding. Related Data Home Medications Medication Instructions Recorded Confirmed aspirin 81 mg tablet,delayed 81 mg PO DAILY . 09/05/20 09/07/23 release amlodipine 10 mg-atorvastatin 80 1 each PO DAILY bp 10/10/20 09/07/23 mg tablet empagliflozin 25 mg tablet 25 mg PO DAILY Diabetes 10/10/20 09/07/23 fenofibrate nanocrystallized 160 160 mg PO DAILY Cholesterol 10/10/20 09/07/23 mg tablet atorvastatin 80 mg tablet 80 mg PO HS 08/18/23 09/07/23 lisinopril 5 mg tablet 10 mg PO DAILY bp 08/18/23 09/07/23 Previous Rx's Medication Instructions Recorded hydrocodone 5 mg-acetaminophen 325 1 tab PO Q6H PRN post-op pain #13 09/09/23 mg tablet tabs Allergies Allergy/AdvReac Type Severity Reaction Status Date / Time No Known Allergies Allergy Verified 09/09/23 06:12 [facility] Disclaimer: The information contained in this section may have been updated after the patient was seen, as this information can be updated by other users. Medical History Cataract Diabetes HLD (hyperlipidemia) HTN (hypertension) Skin cancer Sleep apnea Surgical History H/O removal of cyst S/P colonoscopic polypectomy Family History Other No significant family history Social History Smoking Status: Current every day smoker tobacco type: cigarettes packs per day: 1 second hand exposure: No alcohol intake: never substance use type: denies use current occupational status: employed and retired Travel in the last 8 weeks: None household members: spouse and family housing: house current occupation: HOME PLANNING CONSULTANT SALESPERSON current occupational exposures/hazards: No caffeine: Yes ROS Obtained: Yes All systems reviewed & no additional complaints except as documented Physical Exam General General appearance: alert and in no apparent distress Head Head exam: atraumatic and normocephalic Eye Eye exam: Present normal appearance, PERRL and EOMI ENT ENT exam: Present normal oropharynx and normal external ear exam Neck Neck exam: Present normal inspection and full ROM Chest Chest inspection: Present normal inspection and symmetric chest wall rise; Absent tenderness Respiratory Respiratory exam: Present normal lung sounds bilaterally; Absent respiratory distress Cardiovascular Cardiovascular exam: Present regular rate and normal rhythm Abdominal Exam Abdominal exam: Present soft; Absent distention, tenderness or guarding Extremities Exam Extremities exam: Present normal inspection; Absent edema or joint swelling Back Exam Back exam: Present other (Large dressing noted oriented vertically over the left upper mid back. No active bleeding through the dressing noted.) Neurological Exam Neurological exam: Present alert and oriented X3; Absent motor sensory deficit Psychiatric Psychiatric exam: Present normal affect and normal mood Skin Skin exam: Present warm, dry and normal color Lymphatic Lymphatic Findings: no adenopathy Medical Decision Making Medical Records Medical records reviewed: Yes I reviewed the patient's medical records. Jesús Inquiry Pt receiving controlled substance: No Jesús was queried for this patient: No Vital Signs: 09/10/23 01:16 Temperature 97.5 F L Temperature Source Oral Pulse Rate [Right] 65 Respiratory Rate 16 Blood Pressure [Right Arm] 175/83 H Blood Pressure Mean [Right Arm] 113 02 Sat by Pulse Oximetry 99 Lab Data Lab results reviewed: Yes I reviewed the patient's lab results. Medical Decision Narrative: 68-year-old male with history of sebaceous cyst removal by Dr. Jimenez less than 24 hours ago presents with concern for continued bleeding. It is not actively bleeding on arrival but has been dripping through the bandage at home per her report. Differential diagnosis includes but not limited to acute blood loss anemia, coagulopathy, hematoma formation. A bedside ultrasound was performed of the bulging tissue, on my interpretation it shows no evidence of hematoma at this time. We considered removing the bandage, but given it is a large fresh surgical incision and does not appear to be heavily bleeding, we did not take down the dressing in order to preserve sterility. We considered labs and CT imaging, but given our suspicion for hemodynamically significant or emergent bleeding at this time is very low with a negative ultrasound, we do not feel this is indicated. Patient will follow-up with his general surgery team in the morning. Patient discharged stable condition with strict return precautions. Procedures Risk/Benefits of Procedure(s) Were Explained: Yes Critical Care Critical Care Time Critical Care Time: No
[2023-09-10 01:42] VITALS: BP 168/80; PULSE 68; RESP 16; TEMP 36.4; O2SAT 98
== END 2023-09-10 01:46 | disposition home or self-care (01) ==
LOC: ER 01:54
PROVIDERS: Emergency Provider Emergency Medicine; PCP Nurse Practitioner Family
DX: L76.21 Postprocedural hemorrhage of skin and subcutaneous tissue following a dermatologic procedure (principal)
CPT/HCPCS: 99282

== ENCOUNTER 2024-03-07 09:08 | Day surgery (SDC) | payer MEDICARE, MEDICAID, SELFPAY ==
[2024-03-07 09:23] VITALS: BP 161/80; PULSE 57; RESP 18; TEMP 36.3; O2SAT 94; BMI 30.2
--- NOTE | 2024-03-07 09:32 | P.PCN_ITS ---
Procedure: Date: 03/07/24 Patient Date of :: 1955 Procedure Performed:: Colonoscopy with polypectomy Indications:: History of colon polyps Colonoscopy in October 2022 was complicated by monitor poor bowel preparation and profound spasticity. Hemorrhoids noted. Diverticulosis noted. 3 polyps around 60 cm were excised and found to be a combination of sessile serrated adenomas and tubular adenomas. Performing Provider:: Marco Antonio Jimenez MD Referring Provider:: . Sedation:: Monitored anesthesia care Procedure:: After informed consent was obtained the patient was taken to the endoscopy suite. Sedation ensued after the patient was transferred to the left lateral decubitus position. Pulse, blood pressure, and oxygen saturation were monitored throughout the procedure. Digital rectal exam revealed no significant abnormality. The colonoscope was placed in position. The entire colon was evaluated. The colonoscope was carefully removed and the patient was transferred to recovery in stable condition. Please see findings and specimens below for detail. Findings:: Bowel preparation moderate to poor Fairly profound spasticity/lack of relaxation Unchanged pandiverticulosis Complex hemorrhoidal cushions/tags Polyps (see specimens) Specimens:: Sessile polyp at 50 cm (cold snare) Polyp at 10 cm (cold snare) -note that this polyp was not retrieved secondary to severe spasticity and surrounding stool burden Recommendations:: Gastroenterology consultation secondary to limited bowel preparation, as well as, profound spasticity/lack of relaxation on multiple colonoscopies Short-term repeat colonoscopy deferred to the gastroenterology service ( recommendations are for 1-2-year repeat) Complications:: No immediate with the exception of limited bowel preparation and profound spasticity/lack of relaxation. Estimated blood obtained (mL): 1 Colonoscopy Component Colonoscopy Component Was a colonoscopy performed during today's procedure?: Yes Recommended follow up colonoscopy of at least 10 years?: No If no, follow up colonoscopy recommended in ___ years?: (See above) Reason for not recommending >/= 10 yr follow-up interval?: (See above)
[2024-03-07 09:33] LABS: POC Glucose,Bedside 107 (70-110)
[2024-03-07 09:41] VITALS: O2SAT 94
--- NOTE | 2024-03-07 09:55 | P.PNANES_ITS ---
[facility] Disclaimer: The information contained in this section may have been updated after the patient was seen, as this information can be updated by other users. Medical History Sleep apnea Cataract Skin cancer Diabetes HLD (hyperlipidemia) HTN (hypertension) Surgical History H/O removal of cyst S/P colonoscopic polypectomy Family History Other No significant family history Social History (Updated 03/07/24 @ 09:25 by Selina Meyers RN) Smoking Status: Current every day smoker tobacco type: cigarettes packs per day: 1 second hand exposure: No alcohol intake: never substance use type: denies use current occupational status: retired Travel in the last 8 weeks: None household members: spouse and family housing: house current occupation: [employer] current occupational exposures/hazards: No caffeine: Yes [facility] Anesthesia Checklist Patient Identification Patient Identification: Arm Band Structural Data Admitted From: Home Planned Operative Procedure/s: Colonoscopy Consent for Planned Operative Procedure(s) Verified: Yes Verified Documents: Surgical Consent and History and Physical NPO Status Verified Time NPO: 00:00 Additional verifications Anesthesia Reactions: No Hx Blood Transfusions: No Blood Transfusion Reaction: No Airway Assessment Mallampati Score:: Class II C-Spine Mobility Assessed: Yes TMJ Mobility Assessed: Yes Dentition: Edentulous Neurological Assessment Level of Consciousness: Awake, Alert and Appropriate Anesthesia Plan Anesthesia Risk discussed: Yes Anesthesia Plan: Verified ASA Class: III Anesthesia Type: MAC
[2024-03-07 10:23] VITALS: BP 105/59; PULSE 51; RESP 18; TEMP 36.6; O2SAT 91
[2024-03-07 10:33] VITALS: BP 106/56; PULSE 51; RESP 18; TEMP 36.5; O2SAT 93
[2024-03-07 10:43] VITALS: BP 139/72; PULSE 50; RESP 18; TEMP 36.6; O2SAT 95
[2024-03-07 10:53] VITALS: BP 132/72; PULSE 53; RESP 18; O2SAT 94
== END 2024-03-07 11:13 | disposition home or self-care (01) ==
PROVIDERS: PCP Nurse Practitioner Family; Visit Provider Surgery
PROC: 0DJD8ZZ Inspection of Lower Intestinal Tract, Via Natural or Artificial Opening Endoscopic (ICD-10-PCS; CPT 45385; principal; 2024-03-07 11:30)
DX: Z12.11 Encounter for screening for malignant neoplasm of colon (principal); Z86.010 Personal history of colon polyps; D12.5 Benign neoplasm of sigmoid colon; K64.9 Unspecified hemorrhoids; K57.30 Diverticulosis of large intestine without perforation or abscess without bleeding; E11.8 Type 2 diabetes mellitus with unspecified complications; Z79.84 Long term (current) use of oral hypoglycemic drugs
CPT/HCPCS: 45385; 82962; J2704; J7120

== ENCOUNTER 2024-05-22 07:59 | Outpatient (POV) | payer MEDICARE, MEDICAID, SELFPAY ==
[2024-05-22 08:42] VITALS: BP 154/70; PULSE 55; RESP 18; O2SAT 93; BMI 31.3
--- NOTE | 2024-05-22 08:45 | EXP.PAIN.OV ---
HPI Data of Consult Patient: new to practice Consult date: 05/22/24 Requesting Physician: Hoda Jenkins APRN Primary Care Provider: Booker David MD Consult Narrative Reason for consult: Acute shingles outbreak History of present illness: Mr. Currie is a 68 year old male who presents today as a new patient. He is a referral from Dr. David's office. Today he rates his pain a 6 out of 10. Patient states he has pain all related to an acute shingles outbreak that started about 2 weeks ago. Patient states that he does have a rash all across his lower left abdomen and goes around to his back. Patient states this is constantly burning and aching in anything seems to aggravate this. Patient has been given valacyclovir, gabapentin and lidocaine patches with no improvement. He has tried heat and ice and topicals with no additional changes. Patient is interested in anything we can do as it is interfering with his ability perform activities of daily living such as cooking and cleaning.Patient was prescribed gabapentin 100 mg 3 times a day from his PCP. His Jesús has been reviewed and is appropriate. CC: Hoda Jenkins APRN [facility] Disclaimer: The information contained in this section may have been updated after the patient was seen, as this information can be updated by other users. Medical History Sleep apnea Cataract Skin cancer Diabetes HLD (hyperlipidemia) HTN (hypertension) Surgical History H/O removal of cyst S/P colonoscopic polypectomy Family History Other No significant family history Social History (Updated 05/22/24 @ 08:44 by Chayito Roland RN) Smoking Status: Current every day smoker tobacco type: cigarettes packs per day: 1 second hand exposure: No alcohol intake: never substance use type: denies use current occupational status: other Travel in the last 8 weeks: None household members: spouse and family housing: house current occupation: CONTRACT ADMINISTRATION MANAGER current occupational exposures/hazards: No caffeine: Yes Review of Systems Review of Systems Review of systems:: pertinent systems reviewed and negative unless documented below Review of systems (narrative): Review of Systems: General: No recent weight changes, no fever, no sleep disturbances Respiratory: No cough, no shortness of air, no recurring pulmonary infections Cardiovascular/peripheral vascular: No chest pain, no palpitations, no edema, no shortness of breath Gastrointestinal: No new onset incontinence, normal bowel movements reported Genitourinary: No new onset incontinence Musculoskeletal: Left lower abdomen pain, left low back pain Psychiatric: [Normal mood/affect] Neurological: [Denies weakness in extremities], [denies balance issues] Meds Home Medications and Allergies Home Medications ?Medication ?Instructions ?Recorded ?Confirmed ?Type aspirin 81 mg tablet,delayed 81 mg PO DAILY . 09/05/20 04/26/24 History release amlodipine 10 mg-atorvastatin 80 1 each PO DAILY bp 10/10/20 04/26/24 History mg tablet empagliflozin 25 mg tablet 25 mg PO DAILY Diabetes 10/10/20 04/26/24 History fenofibrate nanocrystallized 160 160 mg PO DAILY Cholesterol 10/10/20 04/26/24 History mg tablet atorvastatin 80 mg tablet 80 mg PO HS 08/18/23 04/26/24 History lisinopril 5 mg tablet 10 mg PO DAILY bp 08/18/23 04/26/24 History metformin 500 mg tablet 500 mg PO 03/29/24 04/26/24 History ammonium lactate 12 % topical cream 1 applic topical BID #385 grams 04/25/24 04/26/24 Rx mupirocin 2 % topical ointment 1 applic topical BID infection 10 04/25/24 04/26/24 Rx days #15 grams albuterol sulfate 90 mcg/actuation inhalation 04/26/24 04/26/24 History aerosol inhaler blood sugar diagnostic (Accu-Chek #10 ea 04/26/24 04/26/24 History Guide test strips) lancets (Accu-Chek Softclix #100 ea 04/26/24 04/26/24 History Lancets) semaglutide 7 mg tablet (Rybelsus) mg PO 04/26/24 04/26/24 History New Prescriptions to Start Prescriptions: Allergies Allergy/AdvReac Type Severity Reaction Status Date / Time No Known Allergies Allergy Verified 04/26/24 09:22 Objective Narrative: Physical Exam: General: Alert and oriented x3, no acute distress, pleasant and cooperative Lungs: Respirations even and unlabored, symmetrical chest expansion Eyes: PERRL Musculoskeletal: Flexion and extension of lumbar [spine] somewhat guarded secondary to pain, [antalgic gait noted] point tenderness along left lower abdomen and lumbar paraspinous muscles Neurological: Speech clear, no gross sensory deficit Skin: Patient does have a diffuse vesicle rash with areas of scabbing from his left lower abdomen to his left lumbar paraspinous muscles Assessment and Plan *Assessment and plan (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 Patient was counseled that it would help dry out the rash and hopefully decrease the burning sensations. Risk and benefits were discussed with the patient and he would like to proceed forward with this plan of care. Patient has tried conservative treatment including oral medications, topicals, heat and ice. Patient will be scheduled for trigger point injections of his left lower abdomen and left lumbar paraspinous muscles at the site of his acute shingles outbreak. These injections will be done without fluoroscopy or ultrasound. Patient has been instructed to contact the clinic with any concerns before the next appointment. Dr. Ellis has reviewed this note and agrees with this plan of care. This note was dictated using voice recognition software and make contain errors or omissions. All injections are used with Lidocaine or Bupivacaine and Depo Medrol.
== END 2024-05-22 23:59 | disposition home or self-care (01) ==
LOC: SC.PAIN 08:00
PROVIDERS: PCP Internal Medicine Adolescent Medicine; Visit Provider Nurse Practitioner Family
DX: B02.23 Postherpetic polyneuropathy (principal); M79.18 Myalgia, other site; F17.210 Nicotine dependence, cigarettes, uncomplicated; Z73.89 Other problems related to life management difficulty
CPT/HCPCS: 99202; G0463

== ENCOUNTER 2024-05-24 07:57 | Day surgery (SDC) | payer MEDICARE, MEDICAID, SELFPAY ==
[2024-05-24 08:35] VITALS: BP 163/70; PULSE 53; RESP 18; TEMP 36.9; O2SAT 93; BMI 31.1
[2024-05-24 08:44] VITALS: BP 176/76; PULSE 55; RESP 18; O2SAT 93
[2024-05-24] MEDS: LIDOCAINE 1% 5ML PF VIAL 10 ML (08:51)
[2024-05-24] MEDS: BUPIVACAINE 0.25% 10ML INJ 25 MG IJ (08:51)
--- NOTE | 2024-05-24 08:52 | P.PCN_ITS ---
Procedure Date: 05/24/24 Time: 08:53 Anesthesiologist:: Hoda Jenkins APRN Complications:: None Pre-procedure Diagnosis:: acute shingles, myofascial pain Post-procedure Diagnosis:: same Indications for Procedure:: Mr. Currie is a pleasant 68 year old male who presents for trigger point inj ections. Today he rates his pain a 5 out of 10. He denies any new trauma or injury. He does have a rash all across his lower left abdomen and goes around to his back. It is constantly burning and aching and interfering with his sleep. Patient has been given valacyclovir, gabapentin and lidocaine patches with no improvement. Patient was prescribed gabapentin 100 mg 3 times a day from his PCP. His Jesús has been reviewed and is appropriate. Physical Exam: General: Alert and oriented x3, no acute distress, pleasant and cooperative Lungs: Respirations even and unlabored, symmetrical chest expansion Eyes: PERRL Musculoskeletal: Flexion and extension of lumbar [spine] somewhat guarded secondary to pain, [antalgic gait noted] Neurological: Speech clear, no gross sensory deficit Skin: diffuse rash with various stages of healing on lower left abdomen and following dermatome along left lumbar paraspinous muscles Procedure Details:: Patient was taken to the procedure area with noninvasive blood pressure monitor and pulse ox applied. The skin was then cleansed with ChloraPrep along his left lower abdomen and left lumbar paraspinous muscles. Using a sterile 25-gauge needle pressure points were palpated and marked along his acute shingles rash and 1% lidocaine, 0.25% bupivacaine and 80 mg Depo-Medrol were incrementally injected throughout these muscle groups. A total of 10 mL of solution were injected. Sterile needle was removed. Patient tolerated the procedure well Plan and Disposition:: Patient tolerated the procedure well with no complications and was discharged neurologically intact. I will send in a 2-week dose of methocarbamol 750 mg at bedtime. Patient will return to clinic in 2 weeks for reevaluation of symptoms and plan of care. Patient has been instructed to contact the clinic with any concerns before the next appointment. Dr. Ellis has reviewed this note and agrees with this plan of care. This note was dictated using voice recognition software and make contain errors or omissions. All injections are used with Lidocaine or Bupivacaine and Depo Medrol.
[2024-05-24 08:53] VITALS: BP 156/73; PULSE 55; RESP 18; O2SAT 97
== END 2024-05-24 08:55 | disposition home or self-care (01) ==
PROVIDERS: PCP Internal Medicine Adolescent Medicine; Visit Provider Nurse Practitioner Family
DX: M79.18 Myalgia, other site (principal); B02.23 Postherpetic polyneuropathy
CPT/HCPCS: 20552; J1010

== ENCOUNTER 2024-06-08 15:21 | Outpatient (POV) | payer MEDICARE, MEDICAID, SELFPAY ==
[2024-06-08 15:37] VITALS: BP 148/73; PULSE 63; RESP 16; O2SAT 95; BMI 30.5
--- NOTE | 2024-06-08 15:38 | A.OFFVIS_ITS ---
[facility] Disclaimer: The information contained in this section may have been updated after the patient was seen, as this information can be updated by other users. Medical History Sleep apnea Cataract Skin cancer Diabetes HLD (hyperlipidemia) HTN (hypertension) Surgical History H/O removal of cyst S/P colonoscopic polypectomy Family History Other No significant family history Social History Smoking Status: Current every day smoker tobacco type: cigarettes packs per day: 1 second hand exposure: No alcohol intake: never substance use type: denies use current occupational status: other Travel in the last 8 weeks: None household members: spouse and family housing: house current occupation: REFRIGERATION PERSON current occupational exposures/hazards: No caffeine: Yes PM Subjective & Objective Subjective Subjective:: Patient is a pleasant 68-year-old male who presents today for follow-up of trigger point injection of his left lower abdomen to his left thoracic paraspinous muscles on 05/24/2024. Patient does state that he feels like the combination of his gabapentin and trigger point injections have significantly helped. Patient does state it is hard to write how much improvement the inj ections did themself however he states he has been able to lay on his side and his back without having the severe pain from his shingles rash. He does also say that it is much better and has cleared up significantly following the injections. Patient states that overall the pain has eased off significantly and he is able to function better. Patient does state that he is finished now with his prescription that he had gotten from primary care on the gabapentin. Patient states this medication was very helpful. His Jesús has been reviewed and is appropriate. Review of Systems: General: No recent weight changes, no fever, no sleep disturbances Respiratory: No cough, no shortness of air, no recurring pulmonary infections Cardiovascular/peripheral vascular: No chest pain, no palpitations, no edema, no shortness of breath Gastrointestinal: No new onset incontinence, normal bowel movements reported Genitourinary: No new onset incontinence Musculoskeletal: Left abdomen, left low back Psychiatric: [Normal mood/affect] Neurological: [Denies weakness in extremities], [denies balance issues] Pain at rest (0-10 scale): 2 Objective Objective:: Physical Exam: General: Alert and oriented x3, no acute distress, pleasant and cooperative Lungs: Respirations even and unlabored, symmetrical chest expansion Eyes: PERRL Musculoskeletal: Flexion and extension of lumbar [spine] somewhat guarded secondary to pain, [antalgic gait noted] Neurological: Speech clear, no gross sensory deficit Skin: Diffuse rash along left lower abdomen and left mid back has significantly dried up and only has 1 area of scabbing left, mild discoloration/erythema where the prior rash was present Has patient had previous pain injection?: Yes Percent improvement in pain since last injection: 25 to 50% Conservative treatment options previously tried: Home exercise plan Length of treatment: Longer than 6 weeks Meds Home Medications and Allergies Home Medications ?Medication ?Instructions ?Recorded ?Confirmed ?Type aspirin 81 mg tablet,delayed 81 mg PO DAILY . 09/05/20 06/08/24 History release amlodipine 10 mg-atorvastatin 80 1 each PO DAILY bp 10/10/20 06/08/24 History mg tablet empagliflozin 25 mg tablet 25 mg PO DAILY Diabetes 10/10/20 06/08/24 History fenofibrate nanocrystallized 160 160 mg PO DAILY Cholesterol 10/10/20 06/08/24 History mg tablet atorvastatin 80 mg tablet 80 mg PO HS 08/18/23 06/08/24 History lisinopril 5 mg tablet 10 mg PO DAILY bp 08/18/23 06/08/24 History metformin 500 mg tablet 500 mg PO DIRECTED Diabetes 03/29/24 06/08/24 History ammonium lactate 12 % topical cream 1 applic topical BID #385 grams 04/25/24 06/08/24 Rx mupirocin 2 % topical ointment 1 applic topical BID infection 10 04/25/24 06/08/24 Rx days #15 grams albuterol sulfate 90 mcg/actuation 1 inh inhalation DIRECTED 04/26/24 06/08/24 History aerosol inhaler Breathing Problems blood sugar diagnostic (Accu-Chek #10 ea 04/26/24 06/08/24 History Guide test strips) lancets (Accu-Chek Softclix #100 ea 04/26/24 06/08/24 History Lancets) semaglutide 7 mg tablet (Rybelsus) 7 mg PO DIRECTED Diabetes 04/26/24 06/08/24 History methocarbamol 750 mg tablet 750 mg PO HS #30 tabs 05/24/24 06/08/24 Rx gabapentin 100 mg capsule 100 mg PO TID #90 caps 06/08/24 Rx New Prescriptions to Start Prescriptions: gabapentin JenkinsHoda beltre Allergies Allergy/AdvReac Type Severity Reaction Status Date / Time No Known Allergies Allergy Verified 04/26/24 09:22 Assessment and Plan *Assessment and plan (1) Myofascial pain: Status: Acute Category: Medical Code(s): M79.18 - Myalgia, other site (2) Acute herpes zoster neuropathy: Status: Acute Category: Medical Code(s): B02.23 - Postherpetic polyneuropathy Plan Patient's rash has significantly decreased and dried up from our last visit. I did discuss with the patient that I will send an additional 1 month supply of the gabapentin and have him follow back up in 1 month for reevaluation of symptoms and plan of care. Patient agrees with this plan Patient has been instructed to contact the clinic with any concerns before the next appointment. Dr. Ellis has reviewed this note and agrees with this plan of care. This note was dictated using voice recognition software and make contain errors or omissions. All injections are used with Lidocaine or Bupivacaine and Depo Medrol.
== END 2024-06-08 23:59 | disposition home or self-care (01) ==
PROVIDERS: PCP Internal Medicine Adolescent Medicine; Visit Provider Nurse Practitioner Family
DX: M79.18 Myalgia, other site (principal); B02.23 Postherpetic polyneuropathy; F17.210 Nicotine dependence, cigarettes, uncomplicated
CPT/HCPCS: 99212; G0463

== ENCOUNTER 2024-10-11 14:59 | Outpatient (CLI) | payer MEDICARE, MEDICAID, SELFPAY ==
--- NOTE | 2024-10-11 15:00 | CT_ITS ---
FINAL REPORT TECHNIQUE: Axial images were obtained from the lung apex to the mid abdomen by computed tomography. This study was performed with techniques to keep radiation doses as low as reasonably achievable (ALARA). Individualized dose reduction techniques using automated exposure control or adjustment of mA and/or kV according to the patient's size were employed. CLINICAL HISTORY: TOBACCO DEPENDENCE current smoker, 1 07/06 ppd x 50 plus years COMPARISON: 08/30/2023 FINDINGS: CHEST CT LOW DOSE CTDI vol (mGy): 2.90 DLP (mGy-cm): 104.20 There is evidence of old granulomatous disease. Oval soft tissue density in the anterior mediastinum measures 19 x 8 mm is unchanged. This is considered benign, possibly lymph node or remnant thymic tissue. No new adenopathy is identified. The previously noted cystic mass in the left paramidline upper thoracic region is no longer evident. The heart is normal in size. There is no pericardial or pleural effusion. Lung window images demonstrate no suspicious infiltrate or nodule. Limited images of the upper abdomen are unremarkable. IMPRESSION: Lung RADS category 1. Recommend 12 month follow-up low-dose chest CT. Reviewed, Interpreted and Dictated by Navid Lopez MD Transcribed by Patricia Castellanos Authenticated and [facility]
== END 2024-10-11 23:59 | disposition home or self-care (01) ==
LOC: RAD 14:59
PROVIDERS: PCP Internal Medicine Adolescent Medicine; Visit Provider Nurse Practitioner Family
DX: Z87.891 Personal history of nicotine dependence (principal)
CPT/HCPCS: 71271

== ENCOUNTER 2025-05-03 10:23 | Outpatient (CLI) | payer MEDICARE, MEDICAID, SELFPAY ==
[2025-05-03 10:44] LABS: Hematocrit 57.9 % (42.0-52.0); Immature Granulocytes % 0.3 %; Mean Corpuscular HGB Conc 31.4 g/dL (31.8-35.4); Mean Corpuscular Hemoglobin 27.7 pg (27.0-31.2); Mean Corpuscular Volume 88.0 fl (80-94); Nucleated Red Blood Cells % 0 %; Platelet Count 196 K/mm3 (142-424); Red Blood Count 6.58 M/mm3 (4.60-6.20); Red Cell Distribution Width-SD 46.8 fL; White Blood Count 9.6 K/mm3 (4.8-10.8)
[2025-05-03 10:59] LABS: Hemoglobin 18.2 g/dL (14.1-18.0)
== END 2025-05-03 23:59 | disposition home or self-care (01) ==
LOC: LAB 10:24
PROVIDERS: PCP Nurse Practitioner Family; Visit Provider Internal Medicine Medical Oncology
DX: D75.1 Secondary polycythemia (principal)
CPT/HCPCS: 36415; 85025